=== PATIENT | male | born 1950 | race Native Hawaiian/Other Pacific Islander ===

== ENCOUNTER 2016-07-23 09:58 | Outpatient (CLI) | payer OTHER ==
[~2016-07-23 09:58] MED LIST: ALPR0.5T24 PO; AMOX500C85 PO; CARV12.5 PO; EQ ASPIRIN325 MG PO; FURO40TA93 PO; GLYB5TAB65 PO; LEVEMIR SC; LIPITOR20 MG PO; LISI5TAB10 PO; MICRO-K10 MEQ OR; SERT100T PO; SERT50TA PO; ZOLP10TA2 PO
== END 2016-07-23 21:42 | disposition home or self-care (01) ==
LOC: RAD 09:58
DX: J40 Bronchitis, not specified as acute or chronic (principal)

== ENCOUNTER 2016-07-30 09:06 | Outpatient (CLI) | payer OTHER | END 2016-07-30 20:47 | disposition home or self-care (01) | LOC: RESP 09:06 | DX: J44.9 Chronic obstructive pulmonary disease, unspecified (principal) | CPT/HCPCS: 36600; 82805; 94664 ==

== ENCOUNTER 2016-11-19 06:29 | Outpatient (CLI) | payer OTHER ==
[2016-11-19 06:58] LABS: PLATELET COUNT 219 K/uL (142-355)
[2016-11-19 07:12] LABS: POTASSIUM 3.3 mmol/L (3.6-5.2)
== END 2016-11-19 19:29 | disposition home or self-care (01) ==
LOC: LABW 06:29
PROVIDERS: Internal Medicine
DX: E11.9 Type 2 diabetes mellitus without complications (principal)
CPT/HCPCS: 36415; 80053; 80061; 81000; 82043; 82570; 83036; 84443; 85027

== ENCOUNTER 2017-04-04 14:19 | Outpatient (CLI) | payer OTHER, MEDICARE | END 2017-04-04 19:06 | disposition home or self-care (01) | LOC: RAD 14:19 | DX: M25.561 Pain in right knee (principal) ==

== ENCOUNTER 2017-09-17 08:57 | Outpatient (CLI) | payer OTHER, MEDICARE ==
[2017-09-17 09:30] LABS: PLATELET COUNT 119 K/uL (142-355)
[2017-09-17 10:54] LABS: POTASSIUM 3.5 mmol/L (3.6-5.2)
== END 2017-09-17 21:11 | disposition home or self-care (01) ==
LOC: LABW 08:57
PROVIDERS: Internal Medicine
DX: E11.9 Type 2 diabetes mellitus without complications (principal)
CPT/HCPCS: 36415; 80053; 80061; 81000; 83036; 84443; 85027

== ENCOUNTER 2018-02-15 08:10 | Outpatient (CLI) | payer OTHER, MEDICARE ==
[2018-02-15 08:31] LABS: PLATELET COUNT 219 K/uL (142-355)
[2018-02-15 09:07] LABS: POTASSIUM 4.2 mmol/L (3.6-5.2)
== END 2018-02-15 22:10 | disposition home or self-care (01) ==
LOC: LABW 08:10
PROVIDERS: Internal Medicine
DX: E11.9 Type 2 diabetes mellitus without complications (principal); I25.10 Atherosclerotic heart disease of native coronary artery without angina pectoris
CPT/HCPCS: 36415; 80053; 80061; 81000; 82043; 82570; 83036; 84443; 85027

== ENCOUNTER 2018-04-12 08:12 | Outpatient (CLI) | payer OTHER, MEDICARE ==
[2018-04-12 09:23] LABS: POTASSIUM 4.1 mmol/L (3.6-5.2)
== END 2018-04-12 20:11 | disposition home or self-care (01) ==
LOC: LABW 08:12
PROVIDERS: Internal Medicine
DX: I25.5 Ischemic cardiomyopathy (principal)
CPT/HCPCS: 36415; 80048

== ENCOUNTER 2018-06-27 09:07 | Outpatient (CLI) | payer OTHER, MEDICARE | END 2018-06-27 22:30 | disposition home or self-care (01) | LOC: LABW 09:07 | DX: F17.220 Nicotine dependence, chewing tobacco, uncomplicated (principal); J44.9 Chronic obstructive pulmonary disease, unspecified; Z95.1 Presence of aortocoronary bypass graft; Z87.891 Personal history of nicotine dependence; Z86.79 Personal history of other diseases of the circulatory system; R06.09 Other forms of dyspnea | CPT/HCPCS: 36415; 82103; 82104 ==

== ENCOUNTER 2018-07-21 10:26 | Emergency (ER) | payer OTHER, MEDICARE ==
[~2018-07-21] VITALS: Ht 190.5 cm; Wt 108.9 kg
[2018-07-21 11:00] LABS: PLATELET COUNT 136 K/uL (142-355)
[2018-07-21] MEDS ORDERED: GABA300C2 PO (11:01)
[2018-07-21] MEDS ORDERED: GLIP10TA55 PO (11:02)
[2018-07-21] MEDS ORDERED: CARV6.25 PO (11:02)
[2018-07-21] MEDS ORDERED: ENALAPRIL5 MG PO (11:02)
[2018-07-21] MEDS ORDERED: CELEBREX200 MG PO (11:03)
[2018-07-21] MEDS ORDERED: LIPITOR40 MG PO (11:05)
[2018-07-21] MEDS ORDERED: KLOR-CON SPRIN10 MEQ PO (11:05)
[2018-07-21] MEDS ORDERED: SPIRONOLACT25 MG PO (11:06)
[2018-07-21] MEDS ORDERED: FURO20TA67 PO (11:06)
[2018-07-21] MEDS ORDERED: FERROUS SULF325 M1 PO (11:07)
[2018-07-21] MEDS ORDERED: TRESIBA FL100 UNIT/M SC (11:09)
[2018-07-21] MEDS ORDERED: ANORO ELLIPTA 61 AER INH (11:10)
[2018-07-21] MEDS ORDERED: FLUTMIS6 INH (11:10)
[2018-07-21 11:30] LABS: POTASSIUM 3.9 mmol/L (3.6-5.2)
[2018-07-21 13:26] VITALS: BP 109/54; TEMP 97.5
== END 2018-07-21 13:45 | disposition home or self-care (01) ==
LOC: ED 10:26
DX: J44.9 Chronic obstructive pulmonary disease, unspecified (principal); J90 Pleural effusion, not elsewhere classified; R53.1 Weakness; R00.1 Bradycardia, unspecified
CPT/HCPCS: 80053; 81000; 82550; 82553; 84484; 85027; 93005; 96360; 96361; 99284

== ENCOUNTER 2019-04-26 17:19 | Outpatient (CLI) | payer OTHER, MEDICARE ==
[~2019-04-26 17:19] MED LIST changes: +ANORO ELLIPTA 61 AER INH; +CARV6.25 PO; +CELEBREX200 MG PO; +ENALAPRIL5 MG PO; +FERROUS SULF325 M1 PO; +FLUTMIS6 INH; +FURO20TA67 PO; +GABA300C2 PO; +GLIP10TA55 PO; +KLOR-CON SPRIN10 MEQ PO; +LIPITOR40 MG PO; +SPIRONOLACT25 MG PO; +TRESIBA FL100 UNIT/M SC
[2019-04-26 19:02] LABS: PLATELET COUNT 156 K/uL (142-355)
[2019-04-29 15:41] LABS: POTASSIUM 4.7 mmol/L (3.6-5.2)
== END 2019-04-26 20:48 | disposition home or self-care (01) ==
LOC: LAB 17:19
PROVIDERS: Internal Medicine
DX: I10 Essential (primary) hypertension (principal); E11.9 Type 2 diabetes mellitus without complications; E78.00 Pure hypercholesterolemia, unspecified; R35.1 Nocturia
CPT/HCPCS: 80053; 82306; 84153; 84443; 85027

== ENCOUNTER 2019-11-15 14:57 | Observation (INO) | payer OTHER, MEDICARE ==
[~2019-11-15] VITALS: Ht 190.5 cm; Wt 109.4 kg
[2019-11-15] VITALS (7 sets, daily range): BP systolic 104–142; BP diastolic 57–90; TEMP 97.6–99.3; Ht 190.5 cm; Wt 109.4 kg
[2019-11-15 15:40] LABS: PLATELET COUNT 127 K/uL (142-355)
[2019-11-15 15:43] LABS: POTASSIUM 4.2 mmol/L (3.6-5.2)
[2019-11-15 15:53] LABS: PARTIAL THROMBOPLASTIN TIME 24.9 SECONDS (24.5-33.6)
[2019-11-16 04:28] VITALS: BP 97/60; TEMP 97.6
[2019-11-16] MEDS ORDERED: KLOR-CON SPRIN10 MEQ PO (05:05)
[2019-11-16] MEDS ORDERED: SERT100T PO (05:12)
[2019-11-16 05:22] LABS: PLATELET COUNT 110 K/uL (142-355)
[2019-11-16 08:00] VITALS: BP 119/79; TEMP 98.6
[2019-11-16 12:00] VITALS: BP 119/79; TEMP 98.6
[2019-11-16 16:00] VITALS: BP 107/66; TEMP 98.1
[2019-11-16 20:15] VITALS: BP 121/68; TEMP 98.6
[2019-11-17 00:09] VITALS: BP 123/57; TEMP 98.4
[2019-11-17 04:17] VITALS: BP 89/47; TEMP 98.4
[2019-11-17 05:23] LABS: POTASSIUM 3.9 mmol/L (3.6-5.2)
[2019-11-17 05:30] LABS: PLATELET COUNT 104 K/uL (142-355)
[2019-11-17 08:00] VITALS: BP 125/71; TEMP 98.7
[2019-11-17 12:00] VITALS: BP 96/53; TEMP 98.8
== END 2019-11-17 13:20 | disposition home or self-care (01) ==
LOC: ED 14:57 → MED/SURG 16:00
PROVIDERS: Internal Medicine Endocrinology, Diabetes & Metabolism; ADMIT Hospitalist
DX: I50.23 Acute on chronic systolic (congestive) heart failure (principal); J96.01 Acute respiratory failure with hypoxia; I11.0 Hypertensive heart disease with heart failure; E11.9 Type 2 diabetes mellitus without complications; F32.89 Other specified depressive episodes; E78.49 Other hyperlipidemia; I25.10 Atherosclerotic heart disease of native coronary artery without angina pectoris
CPT/HCPCS: 36415; 51702; 80048; 80053; 81000; 82550; 82948; 83690; 83735; 83880; 84443; 84484; 85027; 85610; 85730; 93005; 94760; 96372; 96374; 96375; 99220; 99284; G0378; J1650; J1815; J1940; J3490

== ENCOUNTER 2020-04-10 08:51 | Outpatient (CLI) | payer OTHER, MEDICARE ==
[2020-04-10 09:42] LABS: POTASSIUM 3.9 mmol/L (3.6-5.2)
[2020-04-10 09:52] LABS: PLATELET COUNT 102 K/uL (142-355)
== END 2020-04-10 19:47 | disposition home or self-care (01) ==
LOC: LABW 08:51
PROVIDERS: Internal Medicine
DX: E11.9 Type 2 diabetes mellitus without complications (principal)
CPT/HCPCS: 36415; 80053; 80061; 81000; 82043; 82570; 83036; 84439; 84443; 85027

== ENCOUNTER 2020-06-11 15:34 | Outpatient (CLI) | payer OTHER, MEDICARE ==
[2020-06-11 15:58] LABS: POTASSIUM 4.3 mmol/L (3.6-5.2)
== END 2020-06-11 20:03 | disposition home or self-care (01) ==
LOC: LABW 15:34
PROVIDERS: ATTEND Internal Medicine
DX: I50.9 Heart failure, unspecified (principal)
CPT/HCPCS: 36415; 80048

== ENCOUNTER 2021-03-19 08:13 | Outpatient (CLI) | payer OTHER, MEDICARE ==
[2021-03-19 09:15] LABS: PLATELET COUNT 122 K/uL (142-355)
[2021-03-19 09:26] LABS: POTASSIUM 4.9 mmol/L (3.6-5.2)
== END 2021-03-19 19:08 | disposition home or self-care (01) ==
LOC: LABW 08:13
PROVIDERS: ATTEND Internal Medicine
DX: E11.9 Type 2 diabetes mellitus without complications (principal); I50.9 Heart failure, unspecified; E03.8 Other specified hypothyroidism; I11.0 Hypertensive heart disease with heart failure
CPT/HCPCS: 36415; 80053; 80061; 81000; 83036; 84439; 84443; 85027

== ENCOUNTER 2021-03-24 13:29 | Outpatient (CLI) | payer OTHER, MEDICARE ==
[2021-03-24 13:54] LABS: PLATELET COUNT 99 K/uL (142-355)
[2021-03-24 14:28] LABS: POTASSIUM 4.3 mmol/L (3.6-5.2)
== END 2021-03-24 19:05 | disposition home or self-care (01) ==
LOC: LABW 13:29
PROVIDERS: ATTEND Internal Medicine
DX: N18.32 Chronic kidney disease, stage 3b (principal); R53.83 Other fatigue; E53.8 Deficiency of other specified B group vitamins; Z79.899 Other long term (current) drug therapy; I50.9 Heart failure, unspecified
CPT/HCPCS: 36415; 80053; 81000; 82306; 82330; 82570; 82607; 82728; 82746; 83036; 83540; 83550; 83735; 83970; 84100; 84155; 84439; 84443; 85027; 85652; 86038; 86430

== ENCOUNTER 2021-08-18 17:50 | Inpatient (IN) | payer OTHER, MEDICARE ==
[~2021-08-18] VITALS: Ht 190.5 cm; Wt 95.5 kg
[2021-08-18 20:27] VITALS: BP 130/59; TEMP 98
[2021-08-18 22:20] VITALS: BP 130/59; TEMP 98; Ht 190.5 cm; Wt 95.5 kg
[2021-08-19 08:00] VITALS: BP 109/54; TEMP 99
[2021-08-19 20:00] VITALS: BP 118/63; TEMP 98.3
[2021-08-20 08:00] VITALS: BP 168/72; TEMP 98.9
[2021-08-20 20:00] VITALS: BP 113/58; TEMP 98.4
[2021-08-21 08:00] VITALS: BP 109/54; TEMP 98.4
[2021-08-21 19:43] VITALS: BP 108/50; TEMP 98
[2021-08-22 08:00] VITALS: BP 109/54; TEMP 99.3
[2021-08-22 20:00] VITALS: BP 99/41; TEMP 98.3
[2021-08-22 20:22] VITALS: BP 99/41; TEMP 98.3
[2021-08-23 08:00] VITALS: BP 109/61; TEMP 97.6
[2021-08-23 20:00] VITALS: BP 111/65; TEMP 98.8
[2021-08-24 08:00] VITALS: BP 120/62; TEMP 97.7
[2021-08-24 20:00] VITALS: BP 114/56; TEMP 98.4
[2021-08-25 08:00] VITALS: BP 104/59; TEMP 99.3
[2021-08-25 20:00] VITALS: BP 107/53; TEMP 99.3
[2021-08-26 08:00] VITALS: BP 147/54; TEMP 97.6
[2021-08-26] MEDS ORDERED: ENTRESTO 24-261 TAB PO (11:47)
[2021-08-26] MEDS ORDERED: ASA LOW DOSE81 MG PO (11:48)
[2021-08-26] MEDS ORDERED: EPLERENONE25 MG PO (11:55)
[2021-08-26] MEDS ORDERED: BUMETANIDE1 MG PO (11:55)
[2021-08-26] MEDS ORDERED: LEVO0.0218 PO (11:57)
[2021-08-26] MEDS ORDERED: METO2.5T3 PO (11:58)
[2021-08-26] MEDS ORDERED: INSUINJ20 SC (12:00)
[2021-08-26] MEDS ORDERED: FARXIGA10 MG PO (12:01)
[2021-08-26] MEDS ORDERED: CLOPIDOGREL75 MG PO (12:01)
== END 2021-08-26 15:15 | disposition home health service (06) | DRG 56 ==
LOC: SWING 17:50 → MED/SURG 18:29
PROVIDERS: ADMIT Internal Medicine; ATTEND Internal Medicine
DX: I69.398 Other sequelae of cerebral infarction (principal); H54.7 Unspecified visual loss; I69.998 Other sequelae following unspecified cerebrovascular disease; I69.822 Dysarthria following other cerebrovascular disease; M62.81 Muscle weakness (generalized); Z74.1 Need for assistance with personal care; R26.89 Other abnormalities of gait and mobility; I50.22 Chronic systolic (congestive) heart failure; J44.9 Chronic obstructive pulmonary disease, unspecified; E11.622 Type 2 diabetes mellitus with other skin ulcer; R53.81 Other malaise; R41.82 Altered mental status, unspecified; I25.10 Atherosclerotic heart disease of native coronary artery without angina pectoris; N18.31 Chronic kidney disease, stage 3a; E78.5 Hyperlipidemia, unspecified; I13.0 Hypertensive heart and chronic kidney disease with heart failure and stage 1 through stage 4 chronic kidney disease, or unspecified chronic kidney disease; I25.5 Ischemic cardiomyopathy; Z79.4 Long term (current) use of insulin; F32.9 Major depressive disorder, single episode, unspecified; G93.41 Metabolic encephalopathy; L97.419 Non-pressure chronic ulcer of right heel and midfoot with unspecified severity; L98.499 Non-pressure chronic ulcer of skin of other sites with unspecified severity; D53.9 Nutritional anemia, unspecified; G47.33 Obstructive sleep apnea (adult) (pediatric); I73.9 Peripheral vascular disease, unspecified; Z95.1 Presence of aortocoronary bypass graft; Z95.810 Presence of automatic (implantable) cardiac defibrillator; E11.22 Type 2 diabetes mellitus with diabetic chronic kidney disease
CPT/HCPCS: 87081; 87635; 94760; U0003

== ENCOUNTER 2021-09-02 10:23 | Outpatient (CLI) | payer OTHER, MEDICARE ==
[~2021-09-02 10:23] MED LIST changes: +ASA LOW DOSE81 MG PO; +BUMETANIDE1 MG PO; +CLOPIDOGREL75 MG PO; +ENTRESTO 24-261 TAB PO; +EPLERENONE25 MG PO; +FARXIGA10 MG PO; +INSUINJ20 SC; +LEVO0.0218 PO; +METO2.5T3 PO
== END 2021-09-02 19:21 | disposition home or self-care (01) ==
LOC: LABW 10:23
PROVIDERS: ATTEND Podiatrist
DX: M10.071 Idiopathic gout, right ankle and foot (principal)
CPT/HCPCS: 36415; 84550; 86140

== ENCOUNTER 2021-09-30 09:31 | Outpatient (CLI) | payer OTHER, MEDICARE ==
[2021-09-30 10:24] LABS: PLATELET COUNT 119 K/uL (142-355)
[2021-09-30 10:54] LABS: POTASSIUM 4.2 mmol/L (3.6-5.2)
== END 2021-09-30 18:51 | disposition home or self-care (01) ==
LOC: LABW 09:31
PROVIDERS: ATTEND Internal Medicine
DX: N18.32 Chronic kidney disease, stage 3b (principal); E11.9 Type 2 diabetes mellitus without complications; E53.8 Deficiency of other specified B group vitamins
CPT/HCPCS: 36415; 80053; 81000; 82043; 82570; 82607; 82728; 82746; 83036; 83540; 83550; 83735; 84100; 84155; 84439; 84443; 85027; 85652; 86038; 86430

== ENCOUNTER 2021-10-25 09:13 | Outpatient (CLI) | payer OTHER, MEDICARE ==
[2021-10-25 09:36] LABS: PLATELET COUNT 110 K/uL (142-355)
[2021-10-25 10:06] LABS: POTASSIUM 4.6 mmol/L (3.6-5.2)
== END 2021-10-25 20:40 | disposition home or self-care (01) ==
LOC: LABW 09:13
PROVIDERS: ATTEND Nurse Practitioner Family
DX: D69.6 Thrombocytopenia, unspecified (principal); D64.89 Other specified anemias
CPT/HCPCS: 36415; 80053; 82728; 83540; 83550; 83883; 84165; 85027; 86334

== ENCOUNTER 2021-11-05 07:55 | Outpatient (CLI) | payer OTHER, MEDICARE ==
[2021-11-05 09:51] LABS: POTASSIUM 4.1 mmol/L (3.6-5.2)
[2021-11-05 09:52] LABS: PLATELET COUNT 104 K/uL (142-355)
== END 2021-11-05 21:55 | disposition home or self-care (01) ==
LOC: LABW 07:55
PROVIDERS: ATTEND Surgery
DX: Z01.812 Encounter for preprocedural laboratory examination (principal); I70.234 Atherosclerosis of native arteries of right leg with ulceration of heel and midfoot
CPT/HCPCS: 36415; 80048; 85027